=== PATIENT | male | born 1980 | race African-American/Black ===

== ENCOUNTER 2018-01-15 00:58 | Emergency (ER) | payer OTHER, BC ==
[2018-01-15] MEDS ORDERED: Proparacaine 0.5% Ophth Soln 15 ML Bottle EYELF ONE (01:13)
[2018-01-15] MEDS ORDERED: Diphtheria,Pertussis(Acell),Tetanus Vaccine 0.5 ML Syringe IM ONE (01:25)
--- NOTE | 2018-01-15 01:25 | EDM.PDOC ---
ED HPI GENERAL MEDICAL PROBLEM - General Chief Complaint: Eye Problems Stated Complaint: PAIN IN LEFT EYE Time Seen by Provider: 01/15/18 01:04 - History of Present Illness INITIAL COMMENTS - FREE TEXT/NARRATIVE: HISTORY AND PHYSICAL: History of present illness: Patient is a 37-year-old male with no stated medical problems who is unsure of his last tetanus shot and presents with left eye pain that started this evening. Patient says he was grinding metal and did have on glasses but they were not completely occlusive around his eye and this was occurring about 1 PM. He didn't suddenly feel anything go into his eye but later as the evening progressed she felt a foreign body sensation and itchiness to his eye as well as pain. He has no blurred vision and no other trauma to the surrounding facial area. He has no systemic complaints. He does not wear glasses or contact lenses. Review of systems: As per history of present illness and below otherwise all systems reviewed and negative. Past medical history: As per history of present illness and as reviewed below otherwise noncontributory. Surgical history: As per history of present illness and as reviewed below otherwise noncontributory. Social history: No reported history of drug or alcohol abuse. Family history: As per history of present illness and as reviewed below otherwise noncontributory. Physical exam: General: Well-developed well-nourished man who is nontoxic and vital signs reviewed by me. The patient is not photophobic HEENT: Atraumatic, normocephalic, no soft tissue swelling noted on the face and there is no eyelid swelling, pupils reactive sclera are injected left greater than right, negative for conjunctival pallor or scleral icterus, mucous membranes moist, throat clear, neck supple, nontender, trachea midline. There are ptyergium seen in bilateral eyes and there is no orbital tenderness or swelling Lungs: Clear to auscultation, breath sounds equal bilaterally, chest nontender. Heart: S1S2, regular in rhythm no overt murmurs Abdomen: Soft, nondistended, nontender. NABS Pelvis: Deferred Genitourinary: Deferred. Rectal: Deferred. Extremities: Atraumatic, negative for cords or calf pain. Neurovascular unremarkable. Neuro: Awake, alert, oriented. Cranial nerves II through XII unremarkable. Cerebellum unremarkable. Motor and sensory unremarkable throughout. Exam nonfocal. Diagnostics: Visual acuity is 20/20 in each eye individually After proparacaine was instilled fluoroscein stain was performed on the left eye which revealed no corneal abrasion but there is a foreign body seen at the 7 o'clock position on the rim of the iris. Funduscopic exam was difficult to perform as patient did not tolerate most of the exam very well. There is no eyelid edema and the fluoroscein was rinsed out. After irrigation the foreign body was still present. Therapeutics: Tdap Case was discussed with her cdl team truck driver investigation manager Dr. Zaidi at 1:27 AM. He wants the patient to be at his clinic at 7:30 this morning and they will work him in to have this foreign body removed. I discussed this conversation with the patient and advised him to do this follow-up in the morning. I will also give him some tobramycin drops from [facility] still Impression: retained foreign body left eye Definitive disposition and diagnosis as appropriate pending reevaluation and review of above. left eye Pain Score (Numeric/FACES): 6 - Related Data Allergies Allergy/AdvReac Type Severity Reaction Status Date / Time No Known Allergies Allergy Verified 01/15/18 01:05 Home Meds: Home Meds . [No Known Home Meds] 01/15/18 [History] Past Medical History - Past Health History Medical/Surgical History: Denies Medical/Surgical History Social & Family History - Family History Family Medical History: Noncontributory - Tobacco Use Smoking Status *Q: Never Smoker - Recreational Drug Use Recreational Drug Use: No ED ROS GENERAL - Review of Systems Review Of Systems: ROS reveals no pertinent complaints other than HPI. ED EXAM GENERAL W FULL EYE - Physical Exam Exam: See Below (See dictation) Course - Vital Signs Last Recorded V/S: Last Vital Signs Temp 36.3 C 01/15/18 00:58 Pulse 73 01/15/18 00:58 Resp 18 01/15/18 00:58 BP 135/90 01/15/18 00:58 Pulse Ox 97 01/15/18 00:58 - Orders/Labs/Meds Orders: Active Orders 24 hr Category Date Time Status Communication Order [RC] STAT Care 01/15/18 01:23 Ordered Vaccines to be Administered [RC] PER UNIT ROUTINE Care 01/15/18 01:25 Ordered Diphth,Pertuss(Acell),Tet Vac [Adacel] Med 01/15/18 01:25 Once 0.5 ml IM .ONCE ONE Meds: Medications Discontinued Medications Generic Name Dose Route Start Last Admin Trade Name Rowan PRN Reason Stop Dose Admin Proparacaine HCl 1 ml 01/15/18 01:13 Proparacaine 0.5% Ophth Soln EYELF 01/15/18 01:14 ONETIME ONE Departure - Departure Time of Disposition: 01:31 Disposition: Home, Self-Care 01 Condition: Good Clinical Impression: Foreign body of left eye Qualifiers: Encounter type: initial encounter Qualified Code(s): T15.92XA - Foreign body on external eye, part unspecified, left eye, initial encounter - Discharge Information Referrals: PCP,None [Primary Care Provider] - Forms: ED Department Discharge Additional Instructions: The following information is given to patients seen in the emergency department who are being discharged to home. This information is to outline your options for follow-up care. We provide all patients seen in our emergency department with a follow-up referral. The need for follow-up, as well as the timing and circumstances, are variable depending upon the specifics of your emergency department visit. If you don't have a primary care physician on staff, we will provide you with a referral. We always advise you to contact your personal physician following an emergency department visit to inform them of the circumstance of the visit and for follow-up with them and/or the need for any referrals to a consulting specialist. The emergency department will also refer you to a specialist when appropriate. This referral assures that you have the opportunity for followup care with a specialist. All of these measure are taken in an effort to provide you with optimal care, which includes your followup. Under all circumstances we always encourage you to contact your private physician who remains a resource for coordinating your care. When calling for followup care, please make the office aware that this follow-up is from your recent emergency room visit. If for any reason you are refused follow-up, please contact the [facility] emergency department at and ask to speak to the emergency department charge nurse. [address] [address] Please go to [facility] this morning at 7:[address] to be seen by Dr. Zaidi in the ophthalmology clinic. They will work you into the morning schedule. Use eyedrops given to you from [facility], tobramycin, and return to ER as needed and as discussed. Please try not to rub the eye. - My Orders Last 24 Hours: My Active Orders 01/15/18 01:23 Communication Order [RC] STAT 01/15/18 01:25 Vaccines to be Administered [RC] PER UNIT ROUTINE Diphth,Pertuss(Acell),Tet Vac [Adacel] 0.5 ml IM .ONCE ONE - Assessment/Plan Last 24 Hours: My Active Orders 01/15/18 01:23 Communication Order [RC] STAT 01/15/18 01:25 Vaccines to be Administered [RC] PER UNIT ROUTINE Diphth,Pertuss(Acell),Tet Vac [Adacel] 0.5 ml IM .ONCE ONE
== END 2018-01-15 02:08 | disposition home or self-care (01) ==
LOC: MW.ED 00:58
DX: T15.92XA Foreign body on external eye, part unspecified, left eye, initial encounter (principal); Z23 Encounter for immunization
CPT/HCPCS: 90471; 90715; 99283-25

== ENCOUNTER 2022-08-19 02:34 | Emergency (ER) | payer BC, OTHER ==
[2022-08-19] MEDS ORDERED: Ketorolac 30 MG/ML SDV IM STA (03:11)
[2022-08-19] MEDS ORDERED: Amoxicillin 500 MG Cap PO ONE (03:11)
== END 2022-08-19 03:26 | disposition home or self-care (01) ==
LOC: MW.ED 02:34
DX: H66.92 Otitis media, unspecified, left ear (principal); H61.22 Impacted cerumen, left ear
CPT/HCPCS: 96372; 99282; A9270; J1885